=== PATIENT | female | born 1950 | race Caucasian/White ===

== ENCOUNTER → 2016-12-05 | Outpatient (CLI) | payer OTHER ==
[~2016-12-05] MED LIST: REGADENOSON 0.4 MG/5 ML SYRINGE ONE
== END | disposition home or self-care (01) ==
LOC: CFH 08:00
PROVIDERS: ATTEND Internal Medicine Cardiovascular Disease
DX: I25.84 Coronary atherosclerosis due to calcified coronary lesion (principal)
CPT/HCPCS: 78452; 93017; A9502; J2785

== ENCOUNTER → 2018-01-22 | Outpatient (CLI) | payer OTHER | END | disposition home or self-care (01) | LOC: CFH 10:23 | PROVIDERS: ATTEND Internal Medicine | DX: Z12.31 Encounter for screening mammogram for malignant neoplasm of breast (principal) | CPT/HCPCS: 77067 ==

== ENCOUNTER → 2018-06-17 | Outpatient (CLI) | payer OTHER ==
[~2018-06-17] MED LIST changes: +ASCO500T8 PO; +ASPI-496 PO; +ATOR20TA9 PO; +CALC500T93 PO; +CARV3.1212 PO; +GLUC1TAB PO; +LISI1TAB3 PO; +MULT1TAB60 PO; +OMEG1CAP6 PO; -REGADENOSON 0.4 MG/5 ML SYRINGE ONE; +SITA50TA PO; +TAUR500C PO; +UBID100C24 PO; +vitamin D PO
== END | disposition home or self-care (01) ==
LOC: STAR 10:32
PROVIDERS: ATTEND Orthopaedic Surgery
DX: Z01.818 Encounter for other preprocedural examination (principal); M17.12 Unilateral primary osteoarthritis, left knee
CPT/HCPCS: 93005

== ENCOUNTER 2018-06-21 05:35 | Day surgery (SDC) | payer OTHER ==
[~2018-06-21] VITALS: Ht 167.6 cm; Wt 84.0 kg
[2018-06-21] MEDS ORDERED: LACTATED RINGERS 1,000 ML IV SCH (06:04)
[2018-06-21 06:06] VITALS: BP 151/85
[2018-06-21] MEDS ORDERED: BUPIVACAINE/PF 0.5% ONE (06:14)
[2018-06-21] MEDS ORDERED: FENTANYL PF 100 MCG/2ML ONE (06:24)
[2018-06-21] MEDS ORDERED: DEXAMETHASONE 4 MG/ML, 1ML ONE ×2 (06:24)
[2018-06-21] MEDS ORDERED: MIDAZOLAM 1 MG/ML, 2ML ONE (06:24)
[2018-06-21] MEDS ORDERED: LIDOCAINE-MPF 2% ,5ML ONE (06:25)
[2018-06-21] MEDS ORDERED: CEFAZOLIN 1,000 MG ONE ×2 (06:25)
[2018-06-21] MEDS ORDERED: MIDAZOLAM 1 MG/ML, 2ML IV PRN (06:30)
[2018-06-21] MEDS ORDERED: ALBUTEROL SULFATE 2.5 MG/3 ML NPPB PRN (06:30)
[2018-06-21] MEDS ORDERED: HYDROmorphone 1 MG/ML, 1ML IV PRN (06:30)
[2018-06-21] MEDS ORDERED: OXYcodone 5 MG/5 ML ORAL.SOL UDC PO PRN (06:30)
[2018-06-21] MEDS ORDERED: SCOPOLAMINE PATCH, 1.5MG PATCH.TD72 TD PRN (06:30)
[2018-06-21] MEDS ORDERED: MEPERIDINE/PF 25MG/0.5ML IVPush PRN (06:30)
[2018-06-21] MEDS ORDERED: METOPROLOL 1 MG/ML, 5ML IV PRN (06:30)
[2018-06-21] MEDS ORDERED: hydrALAzine 20 MG/ML, 1ML IV PRN (06:30)
[2018-06-21] MEDS ORDERED: MORPHINE SULFATE 4 MG/ML, 1ML IVPush PRN (06:30)
[2018-06-21] MEDS ORDERED: LABETALOL 5MG/ML, 20ML IV PRN (06:30)
[2018-06-21] MEDS ORDERED: FENTANYL PF 100 MCG/2ML IV PRN (06:30)
[2018-06-21] MEDS ORDERED: LORazepam 2 MG/ML, 1ML IVPush PRN (06:30)
[2018-06-21] MEDS ORDERED: EPHEDRINE 50 MG/ML, 1ML ONE (06:38)
[2018-06-21] MEDS ORDERED: PROPOFOL 10 MG/ML, 20ML ONE (06:38)
[2018-06-21] MEDS ORDERED: ONDANSETRON 2MG/ML, 2ML ONE (06:54)
[2018-06-21] MEDS ORDERED: BUPIVACAINE/PF 0.5% INFIL ONE (07:00)
[2018-06-21] MEDS ORDERED: MEPERIDINE/PF 50 MG/ML ONE (07:53)
== END 2018-06-21 09:00 | disposition home or self-care (01) ==
LOC: OUT 05:35
PROVIDERS: ATTEND Orthopaedic Surgery
DX: M23.321 Other meniscus derangements, posterior horn of medial meniscus, right knee (principal); E11.9 Type 2 diabetes mellitus without complications; I10 Essential (primary) hypertension; E78.5 Hyperlipidemia, unspecified; Z87.39 Personal history of other diseases of the musculoskeletal system and connective tissue; Z88.5 Allergy status to narcotic agent; Z79.82 Long term (current) use of aspirin
CPT/HCPCS: 29881; J0690; J1100; J2175; J2250; J2405; J2704; J3010; J3490

== ENCOUNTER → 2019-02-12 | Outpatient (CLI) | payer MEDICARE ==
[~2019-02-12] MED LIST changes: +ATOR20TA37 PO; -ATOR20TA9 PO
== END | disposition home or self-care (01) ==
LOC: CFH 09:40
PROVIDERS: ATTEND Internal Medicine
DX: Z12.31 Encounter for screening mammogram for malignant neoplasm of breast (principal); Z12.2 Encounter for screening for malignant neoplasm of respiratory organs; R91.1 Solitary pulmonary nodule; F17.210 Nicotine dependence, cigarettes, uncomplicated
CPT/HCPCS: 77067; G0297

== ENCOUNTER 2019-09-02 11:01 | Outpatient (CLI) | payer MEDICARE ==
[~2019-09-02 11:01] MED LIST changes: +LISI1TAB23 PO; -LISI1TAB3 PO
[2019-09-02] MEDS ORDERED: LISI1TAB19 PO (11:33)
[2019-09-02 12:19] LABS: BASOPHILS # (AUTO) 0.02 x10^3/uL (0-0.1); BASOPHILS % (AUTO) 0 % (0-1); EOSINOPHILS # (AUTO) 0.08 x10^3/uL (0-0.4); EOSINOPHILS % (AUTO) 2 % (1-7); LYMPHOCYTES # (AUTO) 1.49 x10^3/uL (1-3.4); LYMPHOCYTES % (AUTO) 28 % (22-44); MD NO; MEAN CORPUSCULAR HEMOGLOBIN 31.8 pg (27.0-34.8); MEAN CORPUSCULAR HGB CONC 33.3 g/dL (32.4-35.8); MEAN CORPUSCULAR VOLUME 95.3 fL (80-100); MEAN PLATELET VOLUME 9.7 fL (7.4-10.4); MONOCYTES # (AUTO) 0.44 x10^3/uL (0.2-0.8); MONOCYTES % (AUTO) 8 % (2-9); NEUTROPHILS # (AUTO) 3.27 x10^3/uL (1.8-6.8); NEUTROPHILS % (AUTO) 62 % (42-75); PLATELET COUNT 202 x10^3/uL (130-400); RED CELL DISTRIBUTION WIDTH 13.6 % (9.6-15.2)
[2019-09-02 12:25] LABS: INTERNATIONAL NORMALIZED RATIO 0.91 (0.93-1.1); PROTHROMBIN TIME 9.6 Seconds (9.6-11.5)
[2019-09-02 12:31] LABS: CHLORIDE 106 mmol/L (98-107)
[2019-09-02 12:46] LABS: ALANINE AMINOTRANSFERASE 33 U/L (12-78); ALKALINE PHOSPHATASE 75 U/L (45-117); ANION GAP 5 mmol/L (5-15); BILIRUBIN,TOTAL 0.7 mg/dL (0.2-1.0); CALCIUM 9.9 mg/dL (8.5-10.1); CREATININE 0.98 mg/dL (0.55-1.02); TOTAL PROTEIN 8.4 g/dL (6.4-8.2)
== END 2019-09-02 23:59 | disposition home or self-care (01) ==
LOC: STAR 11:01
PROVIDERS: ATTEND Orthopaedic Surgery
DX: Z01.818 Encounter for other preprocedural examination (principal); M17.0 Bilateral primary osteoarthritis of knee
CPT/HCPCS: 36415; 80053; 83036; 85025; 85610; 85730; 87081; 93005

== ENCOUNTER 2019-09-17 06:49 | Day surgery (SDC) | payer MEDICARE ==
[~2019-09-17] VITALS: Ht 167.6 cm; Wt 80.0 kg
[~2019-09-17 06:49] MED LIST changes: +ACETAMINOPHEN 650 MG/20.3 ML UDC PO PRN; +BISACODYL 10 MG SUPP PR PRN; +DIPHENHYDRAMINE 50 MG CAPSULE PO PRN; +EPINEPHRINE 1 MG/ML, 1ML ONE; +HYDROcodone/APAP 5/325 TABLET PO PRN; +HYDROmorphone 1 MG/ML, 1ML INJ IV PRN; +KETOROLAC 60 MG/2 ML ONE; +LISI1TAB19 PO; +MAGNESIUM HYDROXIDE 8%, 30ML UDC PO PRN; +NS + 20MEQ KCL 1,000 ML IV SCH; +ONDANSETRON 2MG/ML, 2ML IV PRN; +ONDANSETRON ODT 4 MG PO PRN; +OXYcodone IR 5MG TABLET PO PRN; +ROPIvacaine/PF 0.5%, 20 ML ONE; +ROPIvacaine/PF 0.5%, 30 ML ONE; +SCOPOLAMINE PATCH, 1.5MG PATCH.TD72 TD ONE; +SENNA/DOCUSATE TABLET PO PRN; +SODIUM CHLORIDE 0.9% 50 ML ONE; +TRANEXAMIC ACID 100 MG/ML, 10ML ONE; +VANCOMYCIN 1,000 MG ONE; +ZOLPIDEM 5MG TABLET PO PRN
[2019-09-17] MEDS: INSULIN LISPRO 100 UNITS/ML, PEN SQ-INSULIN SCH ×2 (07:00→11:00)
[2019-09-17 07:13] VITALS: BP 128/76
[2019-09-17] MEDS ORDERED: FENTANYL PF 250 MCG/5ML ONE (07:15)
[2019-09-17] MEDS ORDERED: ROPIvacaine/PF 0.2%, 20 ML ONE (07:16)
[2019-09-17] MEDS ORDERED: NEOSTIGMINE 1 MG/ML, 10ML ONE (07:18)
[2019-09-17] MEDS ORDERED: CEFAZOLIN 1,000 MG ONE (07:18)
[2019-09-17] MEDS ORDERED: DEXAMETHASONE 4 MG/ML, 1ML ONE (07:18)
[2019-09-17] MEDS ORDERED: ROCURONIUM 10MG/ML,5ML ONE (07:18)
[2019-09-17] MEDS ORDERED: ONDANSETRON 2MG/ML, 2ML ONE (07:18)
[2019-09-17] MEDS ORDERED: PROPOFOL 10 MG/ML, 20ML ONE (07:18)
[2019-09-17] MEDS ORDERED: GLYCOPYRROLATE 0.2MG/1ML, 5ML ONE (07:18)
[2019-09-17] MEDS ORDERED: ACETAMINOPHEN 500 MG TABLET PO ONE (07:30)
[2019-09-17] MEDS ORDERED: GABAPENTIN 300 MG CAPSULE PO ONE (07:30)
[2019-09-17] MEDS: LACTATED RINGERS 1,000 ML IV SCH ×2 (07:37→11:39)
[2019-09-17] MEDS ORDERED: PHENYLEPHRINE 10 MG/ML ONE (08:23)
[2019-09-17] MEDS ORDERED: MORPHINE SULFATE 4 MG/ML, 1ML IVPush PRN (08:30)
[2019-09-17] MEDS ORDERED: LABETALOL 5MG/ML, 20ML IV PRN (08:30)
[2019-09-17] MEDS ORDERED: OXYcodone 5 MG/5 ML ORAL.SOL UDC PO PRN (08:30)
[2019-09-17] MEDS ORDERED: FENTANYL PF 100 MCG/2ML IV PRN (08:30)
[2019-09-17] MEDS ORDERED: hydrALAzine 20 MG/ML, 1ML IV PRN (08:30)
[2019-09-17] MEDS ORDERED: PROMETHAZINE 25 MG/ML, 1ML IV PRN (08:30)
[2019-09-17] MEDS ORDERED: HALOPERIDOL 5 MG/ML IV PRN (08:30)
[2019-09-17] MEDS ORDERED: HYDROmorphone 2 MG/ML, 1ML IVPush PRN (08:30)
[2019-09-17] MEDS ORDERED: MEPERIDINE/PF 25MG/ML,1ML IVPush PRN (08:30)
[2019-09-17] MEDS ORDERED: DOCUSATE 100 MG CAPSULE PO SCH (09:00)
[2019-09-17] MEDS ORDERED: CARVEDILOL 3.125 MG TABLET PO SCH (09:00)
[2019-09-17] MEDS ORDERED: OXYcodone 5 MG/5 ML ORAL.SOL UDC ONE (10:18)
[2019-09-17 11:00] VITALS: BP 115/64
[2019-09-17] MEDS ORDERED: OXYC5TAB3 PO (14:25)
[2019-09-17] MEDS ORDERED: TRAM50TA2 PO (14:27)
[2019-09-17] MEDS ORDERED: MELO7.5T31 PO (14:28)
[2019-09-17] MEDS ORDERED: CEFAZOLIN PMX 2GM/50ML 50 ML IVPB SCH (15:00)
[2019-09-17] MEDS ORDERED: ASPIRIN 81 MG TABLET EC PO SCH (18:00)
[2019-09-17] MEDS ORDERED: ATORVASTATIN 20 MG TABLET PO SCH (21:00)
[2019-09-18] MEDS ORDERED: DEXAMETHASONE 4 MG/ML, 1ML IVPush SCH (06:00)
[2019-09-18] MEDS ORDERED: HYDROCHLOROTHIAZIDE 12.5 MG CAPSULE PO SCH (09:00)
[2019-09-18] MEDS ORDERED: LINAGLIPTIN 5 MG TAB PO SCH (09:00)
[2019-09-18] MEDS ORDERED: LISINOPRIL 20 MG TABLET PO SCH (09:00)
== END 2019-09-17 16:05 | disposition home or self-care (01) ==
LOC: OUT 06:49 → 4NE 10:54 → OUT 16:05
PROVIDERS: ATTEND Orthopaedic Surgery
DX: M17.12 Unilateral primary osteoarthritis, left knee (principal); E78.5 Hyperlipidemia, unspecified; I10 Essential (primary) hypertension; E11.9 Type 2 diabetes mellitus without complications; F15.90 Other stimulant use, unspecified, uncomplicated; Z79.84 Long term (current) use of oral hypoglycemic drugs; Z87.891 Personal history of nicotine dependence
CPT/HCPCS: 27447; 64447; 82962; 97162; C1713; C1776; J0171; J0690; J1100; J1885; J2370; J2405; J2704; J2710; J2795; J3010; J3370; J7120; G0378

== ENCOUNTER → 2020-02-17 | Outpatient (CLI) | payer MEDICARE, OTHER ==
[~2020-02-17] MED LIST changes: -ACETAMINOPHEN 650 MG/20.3 ML UDC PO PRN; -BISACODYL 10 MG SUPP PR PRN; -DIPHENHYDRAMINE 50 MG CAPSULE PO PRN; -EPINEPHRINE 1 MG/ML, 1ML ONE; -HYDROcodone/APAP 5/325 TABLET PO PRN; -HYDROmorphone 1 MG/ML, 1ML INJ IV PRN; -KETOROLAC 60 MG/2 ML ONE; -MAGNESIUM HYDROXIDE 8%, 30ML UDC PO PRN; +MELO7.5T31 PO; +MULT-449 PO; -MULT1TAB60 PO; -NS + 20MEQ KCL 1,000 ML IV SCH; -ONDANSETRON 2MG/ML, 2ML IV PRN; -ONDANSETRON ODT 4 MG PO PRN; +OXYC5TAB3 PO; -OXYcodone IR 5MG TABLET PO PRN; -ROPIvacaine/PF 0.5%, 20 ML ONE; -ROPIvacaine/PF 0.5%, 30 ML ONE; -SCOPOLAMINE PATCH, 1.5MG PATCH.TD72 TD ONE; -SENNA/DOCUSATE TABLET PO PRN; -SODIUM CHLORIDE 0.9% 50 ML ONE; +TRAM50TA2 PO; -TRANEXAMIC ACID 100 MG/ML, 10ML ONE; -VANCOMYCIN 1,000 MG ONE; -ZOLPIDEM 5MG TABLET PO PRN
== END | disposition home or self-care (01) ==
LOC: CFH 09:36
PROVIDERS: ATTEND Internal Medicine
DX: Z12.31 Encounter for screening mammogram for malignant neoplasm of breast (principal); Z12.2 Encounter for screening for malignant neoplasm of respiratory organs; J84.10 Pulmonary fibrosis, unspecified; N95.8 Other specified menopausal and perimenopausal disorders; R91.1 Solitary pulmonary nodule; Z87.891 Personal history of nicotine dependence
CPT/HCPCS: 77067; 77080; G0297

== ENCOUNTER → 2020-03-01 | Outpatient (CLI) | payer MEDICARE | END | disposition home or self-care (01) | LOC: CFH 14:51 | PROVIDERS: ATTEND Internal Medicine | DX: N64.9 Disorder of breast, unspecified (principal) | CPT/HCPCS: 76642; 77065; G0279 ==

== ENCOUNTER → 2020-06-02 | Outpatient (CLI) | payer MEDICARE ==
[~2020-06-02] MED LIST changes: -LISI1TAB19 PO; +LISI1TAB39 PO; +OMNIPAQUE 350 MG/ML, 100ML BOTTLE ONE
== END | disposition home or self-care (01) ==
LOC: CFH 11:08
PROVIDERS: ATTEND Internal Medicine
DX: R91.8 Other nonspecific abnormal finding of lung field (principal); R91.1 Solitary pulmonary nodule; J84.10 Pulmonary fibrosis, unspecified
CPT/HCPCS: 71260; 82565; Q9967

== ENCOUNTER → 2020-09-29 | Outpatient (CLI) | payer MEDICARE ==
[~2020-09-29] MED LIST changes: -OMNIPAQUE 350 MG/ML, 100ML BOTTLE ONE; -OXYC5TAB3 PO; +OXYC5TAB98 PO
== END | disposition home or self-care (01) ==
LOC: CFH 12:48
PROVIDERS: ATTEND Internal Medicine
DX: N60.01 Solitary cyst of right breast (principal); N64.0 Fissure and fistula of nipple
CPT/HCPCS: 76642; 77061; 77065; G0279

== ENCOUNTER → 2021-03-02 | Outpatient (CLI) | payer MEDICARE | END | disposition home or self-care (01) | LOC: CFH 12:50 | PROVIDERS: ATTEND Internal Medicine | DX: Z12.31 Encounter for screening mammogram for malignant neoplasm of breast (principal) | CPT/HCPCS: 77063; 77067 ==